=== PATIENT | female | born 1990 ===

== ENCOUNTER → 2021-07-14 | Outpatient (CLI) | payer OTHER ==
[~2021-07-14] MED LIST: ALB0.5V INH; CEFP500T4 PO; DOCU-165 PO; FLUT1DIS26 IH; MNTL10T PO; OSLT75C PO
== END ==
LOC: CARD 13:30
PROVIDERS: ATTEND Internal Medicine Cardiovascular Disease
DX: R00.2 Palpitations (principal)
CPT/HCPCS: 93306

== ENCOUNTER 2023-04-27 15:41 | Emergency (ER) | payer OTHER ==
[~2023-04-27] VITALS: Ht 162 cm; Wt 99.0 kg
[2023-04-27] MEDS ORDERED: PROMETHAZINE 25 MG (PHENERGAN) TAB PO ONE (16:15)
[2023-04-27] MEDS ORDERED: ONDANSETRON 4 MG (ZOFRAN) ORAL DISSOLVE TAB PO ONE (16:15)
[2023-04-27] MEDS ORDERED: ACETAMINOPHEN 500 MG TAB (TYLENOL) PO ONE (16:15)
--- NOTE | 2023-04-27 16:19 | ED General ---
General Chief Complaint: Fever-Adult/Adol Stated Complaint: FEVER - CONGESTION Nursing Triage Note: PT CO OF FEVER SINCE THIS AM, BODY ACHES, N/V/D. Source of Information: Patient Exam Limitations: No Limitations History of Present Illness Date Seen by Provider: Apr 27, 2023 Time Seen by Provider: 15:44 Initial Comments 33-year-old female with no pertinent past medical history coming in due to nausea and nonbloody nonbilious vomiting and nonbloody diarrhea. She is also having body aches. Started earlier this morning. Took ibuprofen earlier today. States she is feeling actually little bit better now. She was around someone that was positive for COVID the other day. Denies any significant cough, congestion, chest pain, shortness of breath, abdominal pain, focal weakness or numbness, rash, or any other concerns. LMP was 1 week ago. Allergies and Home Medications Allergies Coded Allergies: No Known Drug Allergies (Verified Allergy, Unknown, 09/06/08) Patient Home Medication List Home Medication List Reviewed: Yes Albuterol (Proventil 0.5% Rt) 2.5 Mg/0.5 Ml Nebu, 2.5 MG INH Q4H PRN Prescribed by: ZAINA DEL CASTILLO on 03/27/09 1736 Cefprozil (Cefzil) 500 Mg Tablet, 1 EACH PO BID Prescribed by: KYLE RAPP on 01/03/12 1701 Docusate Sodium (Dulcolax Stool Softener) 100 Mg Capsule, 100 MG PO, (Reported) Entered as Reported by: MARY SANTORO on 01/03/12 1429 Fluticasone/Salmeterol (Advair 250 Mcg/50 Mcg 60's) 1 Disk Inhp, 1 PUFF IH BID, (Reported) Entered as Reported by: MARY SANTORO on 01/03/12 1429 Montelukast Sodium (Singulair 10 Mg) 10 Mg Tablet, 1 TAB PO DAILY, (Reported) Entered as Reported by: MARY SANTORO on 01/03/12 1429 Oseltamivir Phosphate (Tamiflu) 75 Mg Cap, 75 MG PO BID Prescribed by: KYLE RAPP on 12/24/12 0723 Review of Systems Review of Systems Constitutional: chills, malaise EENTM: no symptoms reported Respiratory: no symptoms reported Cardiovascular: no symptoms reported Gastrointestinal: see HPI Genitourinary: no symptoms reported Musculoskeletal: no symptoms reported Skin: no symptoms reported Psychiatric/Neurological: No Symptoms Reported Past Zzbjvro-Umaqei-Hwodbu Hx Patient Social History Tobacco Use?: Yes Smoking Status: Current Someday Smoker Substance use?: No Alcohol Use?: No Pt feels they are or have been: No Immunizations Up To Date Tetanus Booster (TDap): Unknown First/Initial COVID19 Vaccinat: YES Second COVID19 Vaccination Brandon: YES Past Medical History Last Menstrual Period: Apr 20, [address] History: IUD Sexually Transmitted Disease: Yes (CLYAMDIA TREATED) Physical Exam Vital Signs Vital Signs - First Documented 04/27/23 15:45 Temp 37.7 Pulse 117 Resp 16 B/P (MAP) 132/59 (83) Pulse Ox 96 Capillary Refill : Less Than 3 Seconds Height, Weight, BMI Height: '" Weight: lbs. oz. kg; 37.00 BMI Method:Estimated General Appearance: No Apparent Distress, WD/WN Eyes: Bilateral Eye Normal Inspection HEENT: PERRL/EOMI, Normal ENT Inspection, Pharynx Normal Neck: Full Range of Motion, Normal Inspection, Non Tender, Supple Respiratory: Chest Non Tender, Lungs Clear, Normal Breath Sounds, No Accessory Muscle Use, No Respiratory Distress Cardiovascular: Regular Rate, Rhythm, No Edema, Normal Peripheral Pulses Gastrointestinal: Normal Bowel Sounds, Non Tender, Soft; No Distended, No Guarding Back: Normal Inspection, No CVA Tenderness Extremity: Normal Capillary Refill, Normal Inspection, Normal Range of Motion, Non Tender, No Calf Tenderness, No Pedal Edema Neurologic/Psychiatric: Alert, No Motor/Sensory Deficits, Normal Mood/Affect Skin: Normal Color, Warm/Dry Progress/Results/Core Measures Suspected Sepsis SIRS Temperature: Pulse: 117 Respiratory Rate: 16 Blood Pressure 132 /59 Mean: 83 Results/Orders Lab Results Laboratory Tests Test 04/27/23 16:17 Range/Units SARS-CoV-2 RNA (RT-PCR) Not Detected Not Detecte My Orders Orders - SILVINO SCHNEIDER MD Covid 19 Inhouse Test (04/27/23 16:01) Ondansetron Oral Dissolve Tab (Zofran (04/27/23 16:15) Promethazine Tablet (Phenergan Tablet) (04/27/23 16:15) Acetaminophen Tablet (Tylenol Tablet) (04/27/23 16:15) Medications Given in ED Current Medications Medications Dose Ordered Sig/Jarvis Route Start Time Stop Time Status Last Admin Dose Admin Acetaminophen 1,000 mg ONCE ONCE PO 04/27/23 16:15 04/27/23 16:16 DC 04/27/23 16:13 1,000 MG Ondansetron HCl 4 mg ONCE ONCE PO 04/27/23 16:15 04/27/23 16:16 DC 04/27/23 16:13 4 MG Promethazine HCl 25 mg ONCE ONCE PO 04/27/23 16:15 04/27/23 16:16 DC 04/27/23 16:13 25 MG Vital Signs/I&O 04/27/23 15:45 Temp 37.7 Pulse 117 Resp 16 B/P (MAP) 132/59 (83) Pulse Ox 96 Capillary Refill : Less Than 3 Seconds Blood Pressure Mean: 83 Progress Note : Progress Note 33-year-old female with above history coming in due to nausea, vomiting, body aches. ABCs were intact and vitals were stable on presentation. Physical exam with a soft and nontender abdomen. COVID test was obtained and was negative. She was given Zofran followed by Phenergan. I discussed with her if she is unable to keep p.o. fluids down then we would start an IV and give fluids. The patient was able to keep fluids down however and was feeling better. I believe she is stable for discharge with outpatient follow-up. She was sent home with strict return precautions. Departure Impression Primary Impression: Vomiting and diarrhea Disposition: HOME, SELF-CARE Condition: Stable Departure-Patient Inst. Decision time for Depature: 17:05 Referrals: MARIA DE JESUS ROY DO (PCP/Family) Primary Care Physician Patient Instructions: Viral Gastroenteritis, Adult (DC) Add. Discharge Instructions: This is likely a viral illness. It will improve hopefully in the next couple of days. Nausea medicines were sent to your pharmacy. Take frequent small sips of fluids. Take ibuprofen and/or Tylenol as needed for fever or body aches. Scripts Promethazine HCl (Promethazine Tablet) 25 Mg Tablet 25 MG PO Q8H PRN for NAUSEA/VOMITING for 5 Days, #15 TAB 0 Refills Prov: SILVINO SCHNEIDER MD 04/27/23 Ondansetron (Ondansetron Odt) 4 Mg Tab.rapdis 4 MG SL Q6H PRN for NAUSEA/VOMITING for 5 Days, #20 TAB Prov: SILVINO SCHNEIDER MD 04/27/23 Work/School Note: Work Release Form Date Seen in the Emergency Department: Apr 27, 2023 Return to Work: Apr 29, 2023 Restrictions: Return-No Fever (24hrs), Return-No Vomiting(24hrs) SILVINO SCHNEIDER MD Apr 27, 2023 16:19
[2023-04-27] MEDS ORDERED: PROM25TA14 PO (17:05)
[2023-04-27] MEDS ORDERED: ONDA4TAB11 SL (17:05)
[2023-04-27 17:11] VITALS: BP 134/72
== END 2023-04-27 17:11 | disposition home or self-care (01) ==
LOC: EDUNIT# 15:41 → ER 15:42
DX: R11.2 Nausea with vomiting, unspecified (principal); R19.7 Diarrhea, unspecified; M79.10 Myalgia, unspecified site; R50.9 Fever, unspecified; F17.200 Nicotine dependence, unspecified, uncomplicated; Z28.310 Unvaccinated for COVID-19; Z20.822 Contact with and (suspected) exposure to COVID-19
CPT/HCPCS: 87636; 99283

== ENCOUNTER 2023-04-29 08:34 | Emergency (ER) | payer OTHER ==
[~2023-04-29] VITALS: Ht 162 cm; Wt 100.0 kg
[~2023-04-29 08:34] MED LIST changes: +ONDA4TAB11 SL; +PROM25TA14 PO
[2023-04-29] MEDS ORDERED: DICYCLOMINE 10 MG/ML (BENTYL) 2 ML AMP IM STA (08:58)
[2023-04-29] MEDS ORDERED: LACTATED RINGERS 1,000 ML IV SCH (09:00)
[2023-04-29] MEDS ORDERED: ONDANSETRON 4 MG/2 ML (SDV) Z0FRAN IVP ONE (09:00)
--- NOTE | 2023-04-29 09:02 | ED Abdominal Pain ---
General Chief Complaint: Abdominal/GI Problems Stated Complaint: ABD PAIN | CRAMPING Nursing Triage Note: PT AMB TO RM 6 PT CO OF ABD PAIN AND CRAMPING. PT STATES HAS STATES HAS BEEN HAVING FEVERS PT STATES HAS HAD DIARRHEA APPROX Q 30 MIN BUT IS STARTING TO GET MORE FORMED. PT STATES STILL HAVING NAUSEA BUT NO VOMITING. PT WAS SEEN IN ED ON WEDNESDAY Source of Information: Patient Exam Limitations: No Limitations History of Present Illness Date Seen by Provider: Apr 29, 2023 Time Seen by Provider: 08:50 Initial Comments Patient is a 32-year-old female who presents to the emergency department with a chief complaint of diffuse abdominal cramping/upper abdominal cramping onset 48 hours ago. Patient states that she was seen in the emergency room and had a COVID test. 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 She had been exposed to somebody with COVID. She states she has been nauseous. She develops abdominal cramping shortly after eating. She has had diarrhea and she noted a little blood in her stool this morning. Multiple episodes of diarrhea a day. She has been alternating Tylenol with 800 mg of ibuprofen. Last dose of ibuprofen was at 2 AM this morning. She has not been eating consistently with ibuprofen. She periodically takes Prilosec. Occasionally smokes. No daily alcohol. No prior history of abdominal surgeries. Her last menstrual cycle was 1 week ago she believes. No recent fevers or chills. No congestion or productive cough. No dysuria, urgency or frequency. Timing/Duration: 2-3 Days Severity/Quality: Moderate, Burning, Cramping Location: Other (upper abdomen) Radiation: No Radiation Associated Symptoms: Diaphoresis, Nausea/Vomiting Allergies and Home Medications Allergies Coded Allergies: No Known Drug Allergies (Verified Allergy, Unknown, 09/06/08) Patient Home Medication List Home Medication List Reviewed: Yes Albuterol (Proventil 0.5% Rt) 2.5 Mg/0.5 Ml Nebu, 2.5 MG INH Q4H PRN Prescribed by: ZAINA DEL CASTILLO on 03/27/09 1736 Cefprozil (Cefzil) 500 Mg Tablet, 1 EACH PO BID Prescribed by: KYLE RAPP on 01/03/12 1701 Dicyclomine HCl (Dicyclomine HCl) 20 Mg Tablet, 20 MG PO AC PRN for abdominal cramping Prescribed by: EBENEZER LEDESMA on 04/29/23 1045 Docusate Sodium (Dulcolax Stool Softener) 100 Mg Capsule, 100 MG PO, (Reported) Entered as Reported by: MARY SANTORO on 01/03/12 1429 Fluticasone/Salmeterol (Advair 250 Mcg/50 Mcg 60's) 1 Disk Inhp, 1 PUFF IH BID, (Reported) Entered as Reported by: MARY SANTORO on 01/03/12 1429 Montelukast Sodium (Singulair 10 Mg) 10 Mg Tablet, 1 TAB PO DAILY, (Reported) Entered as Reported by: MARY SANTORO on 01/03/12 1429 Ondansetron (Ondansetron Odt) 4 Mg Tab.rapdis, 4 MG SL Q6H PRN for NAUSEA/VOMITING Prescribed by: SILVINO SCHNEIDER on 04/27/23 1705 Ondansetron (Ondansetron Odt) 4 Mg Tab.rapdis, 4 MG SL Q8H PRN for NAUSEA/VOMITING Prescribed by: EBENEZER LEDESMA on 04/29/23 1045 Oseltamivir Phosphate (Tamiflu) 75 Mg Cap, 75 MG PO BID Prescribed by: KYLE RAPP on 12/24/12 0723 Promethazine HCl (Promethazine Tablet) 25 Mg Tablet, 25 MG PO Q8H PRN for NAUSEA/VOMITING Prescribed by: SILVINO SCHNEIDER on 04/27/23 1705 Sucralfate (Carafate) 1 Gram Tablet, 1 GM PO Q6H Prescribed by: EBENEZER LEDESMA on 04/29/23 1118 Review of Systems Review of Systems Constitutional: see HPI EENTM: No Symptoms Reported Respiratory: No Symptoms Reported Cardiovascular: No Symptoms Reported Gastrointestinal: Abdominal Pain, Diarrhea, Nausea, Vomiting Genitourinary: No Symptoms Reported Musculoskeletal: no symptoms reported Skin: no symptoms reported All Other Systems Reviewed Negative Unless Noted: Yes Past Qluiphn-Wccqzi-Mghnpn Hx Patient Social History Tobacco Use?: Yes Tobacco type used: Cigarettes Smoking Status: Current Someday Smoker Substance use?: No Alcohol Use?: Yes Alcohol Frequency: Once in a while Pt feels they are or have been: No Immunizations Up To Date Tetanus Booster (TDap): Unknown First/Initial COVID19 Vaccinat: YES Second COVID19 Vaccination Brandon: YES Third COVID19 Vaccination Date: YES Past Medical History Surgery/Hospitalization HX: HX [employer] History: IUD Sexually Transmitted Disease: Yes (CLYAMDIA TREATED) Physical Exam Vital Signs Vital Signs - First Documented 04/29/23 04/29/23 08:40 11:19 Temp 36.1 Pulse 106 Resp 16 B/P (MAP) 147/79 (101) Pulse Ox 97 O2 Delivery Room Air Capillary Refill : Less Than 3 Seconds Height/Weight/BMI Height: '" Weight: lbs. oz. kg; 38.00 BMI Method:Estimated General Appearance: WD/WN, no apparent distress, obese HEENT: PERRL/EOMI Respiratory: lungs clear, normal breath sounds, no respiratory distress, no accessory muscle use Cardiovascular: regular rate, rhythm, tachycardia Gastrointestinal: soft, abnormal bowel sounds (hypoactive), tenderness (RUQ and epigastrum; mild tenderness LLQ) Extremities: normal range of motion, non-tender, normal inspection, no pedal edema Skin: normal color, damp Progress/Results/Core Measures Results/Orders Lab Results Laboratory Tests Test 04/29/23 08:50 04/29/23 10:38 04/29/23 10:50 Range/Units White Blood Count 15.7 H 4.3-11.0 10^3/uL Red Blood Count 4.84 3.80-5.11 10^6/uL Hemoglobin 13.6 11.5-16.0 g/dL Hematocrit 41 35-52 % Mean Corpuscular Volume 86 80-99 fL Mean Corpuscular Hemoglobin 28 25-34 pg Mean Corpuscular Hemoglobin Concent 33 32-36 g/dL Red Cell Distribution Width 14.4 10.0-14.5 % Platelet Count 290 130-400 10^3/uL Mean Platelet Volume 10.5 9.0-12.2 fL Immature Granulocyte % (Auto) 0 % Neutrophils (%) (Auto) 82 H 42-75 % Lymphocytes (%) (Auto) 11 L 12-44 % Monocytes (%) (Auto) 6 0-12 % Eosinophils (%) (Auto) 0 0-10 % Basophils (%) (Auto) 0 0-10 % Neutrophils # (Auto) 12.9 H 1.8-7.8 10^3/uL Lymphocytes # (Auto) 1.8 1.0-4.0 10^3/uL Monocytes # (Auto) 0.9 0.0-1.0 10^3/uL Eosinophils # (Auto) 0.0 0.0-0.3 10^3/uL Basophils # (Auto) 0.1 0.0-0.1 10^3/uL Immature Granulocyte # (Auto) 0.1 0.0-0.1 10^3/uL Neutrophils % (Manual) 75 % Lymphocytes % (Manual) 16 % Monocytes % (Manual) 3 % Eosinophils % (Manual) 1 % Band Neutrophils 5 % Blood Morphology Comment NORMAL Sodium Level 137 135-145 MMOL/L Potassium Level 3.4 L 3.6-5.0 MMOL/L Chloride Level 107 98-107 MMOL/L Carbon Dioxide Level 22 21-32 MMOL/L Anion Gap 8 5-14 MMOL/L Blood Urea Nitrogen 8 7-18 MG/DL Creatinine 0.72 0.60-1.30 MG/DL Estimat Glomerular Filtration Rate 114 BUN/Creatinine Ratio 11 Glucose Level 106 H 70-105 MG/DL Calcium Level 9.4 8.5-10.1 MG/DL Corrected Calcium 9.3 8.5-10.1 MG/DL Total Bilirubin 0.2 0.1-1.0 MG/DL Aspartate Amino Transf (AST/SGOT) 19 5-34 U/L Alanine Aminotransferase (ALT/SGPT) 19 0-55 U/L Alkaline Phosphatase 69 40-136 U/L Total Protein 7.5 6.4-8.2 GM/DL Albumin 4.1 3.2-4.5 GM/DL Lipase 10 8-78 U/L Serum Test, Qualitative NEGATIVE NEGATIVE Stool Occult Blood Immunoassay POSITIVE H NEGATIVE Lyme Disease Screen IgG & IgM Ab 0.22 0.00-0.89 Index Lyme Antibody Interpretation Negative Negative Ehrlichia chaffeensis IgG Antibody <1:16 <1:16 Ehrlichia chaffeensis IgM Antibody <1:10 <1:10 Spotted Fever Group IgG Antibody <1:16 <1:16 Spotted Fever Group IgM Antibody <1:10 <1:10 [place]mia Antibody 1:20 H Micro Results Microbiology 04/29/23 Cryptosporidium/Giardia - Final, Complete 04/29/23 C. difficile GDH Antigen & Toxins - Final, Complete 04/29/23 Stool Culture - Final, Complete Campylobacter jejuni See Comments My Orders Orders - BALTAZAR,EBENEZER M MD Ed Iv/Invasive Line Start (04/29/23 08:58) Cbc With Automated Diff (04/29/23 08:58) Comprehensive Metabolic Panel (04/29/23 08:58) Lipase (04/29/23 08:58) Hcg,Qualitative Serum (04/29/23 08:58) Lactated Ringers (Lr 1000 Ml Iv Solution (04/29/23 09:00) Ondansetron Injection (Zofran Injectio (04/29/23 09:00) Dicyclomine Injection (Bentyl Injection) (04/29/23 08:58) Manual Differential (04/29/23 08:50) Us Gallbladder [id number] (04/29/23 09:18) Tick Panel With Lyme Eia (04/29/23 10:17) Occult Blood Stool (04/29/23 10:17) Stool Culture (04/29/23 10:17) C Difficile Ag + Toxin A/B. (04/29/23 10:17) Parasite Scrn Stool Giard Cryp (04/29/23 10:17) Isolation Central Supply Req (04/29/23 10:17) Medications Given in ED Vital Signs/I&O 04/29/23 04/29/23 08:40 11:19 Temp 36.1 36.1 Pulse 106 94 Resp 16 16 B/P (MAP) 147/79 (101) 130/74 Pulse Ox 97 99 O2 Delivery Room Air Blood Pressure Mean: 101 Progress Progress Note : Time: 10:17 Progress Note Patient seen and evaluated by me. Evaluation today includes physical exam, CBC, Chem-12, serum test and gallbladder ultrasound. Pertinent physical exam findings well-developed well-nourished moderately obese female in no acute distress. Abdomen exam reveals hypoactive bowel sounds tenderness in the right upper quadrant, epigastrium and left lower quadrant. She has equivocal Nguyen's. Heart is regular, lungs are clear. No other concerning physical exam findings. Differential diagnosis based on history and physical exam acute cholecystitis, biliary dyskinesia, gastroenteritis, C. difficile colitis, tickborne illness. Patient's labs independently reviewed and interpreted by me. Her CBC shows a white blood cell count of 15.7, hemoglobin of 13.6 hematocrit of 41 platelet count of 290. Chem-12 remarkable only for slightly low potassium at 3.4 otherwise completely within normal limits. Serum test is negative. Gallbladder ultrasound does not show any findings per the radiologist of acute cholecystitis. Patient did state to me that she found a tick on her over Day weekend. She is not certain how long it was on her. She is concerned of possible tick related illness. She states she still is having waves of abdominal cramping. She was on Flagyl a couple of weeks ago for bacterial vaginosis. Otherwise no other antibiotic use recently. She was at the [place] when she found a tick on her. There is concern for possible infectious diarrhea. We are sending off a tick panel and stool panel. Will provide the patient with dicyclomine for the abdominal cramping. She states she is concerned that she may have a gastric ulcer. She did see a little blood in her stool this morning but also has a history of hemorrhoids. I encouraged her to take her acid reducing medications every day. This combined with the Bentyl and Zofran may help her symptoms. I advised that we would follow up with her regarding the stool panel and tick panel. We will go ahead and give her contact information for Dr. Cruz as she may require upper endoscopy at a later date. Encouraged follow-up with her primary care physician. She is comfortable with plan of care. All questions are sought and answered. Patient is stable for discharge. Diagnostic Imaging Diagonstic Imaging: Ultrasound Plain Films/CT/US/NM/MRI: other (GB) Comments NAME: [facility] REC#: [id number] PT STATUS: REG ER : 1990 PHYSICIAN: EBENEZER LEDESMA MD ADMIT DATE: 04/29/23/ER Draft Date of Exam:04/29/23 US GALLBLADDER [id number] EXAMINATION: US Abdomen limited. TECHNIQUE: Multiple real-time grayscale images were obtained over the right upper quadrant in various projections. HISTORY: epigastric and RUQ Abd pain; WBC 15k COMPARISON: None available. FINDINGS: Pancreas: The visualized portions of the pancreas are normal. Liver: The liver is normal in echogenicity and contour. No focal lesions are seen. The portal vein is patent with hepatopetal flow. Gallbladder and biliary tree: Gallbladder is normal without wall thickening, pericholecystic fluid, or sonographic Nguyen sign. There is no biliary ductal dilation. The common duct is obscured by bowel gas. Right kidney: The right kidney is normal without hydronephrosis. Aorta and IVC: The visualized aorta and inferior vena cava are normal. Fluid: No ascites is seen. IMPRESSION: 1. Unremarkable right upper quadrant ultrasound. Dictated on workstation # [id number] Dict: 04/29/23 1002 Trans: 04/29/23 1004 [facility] [id number] Interpreted by: SHU DOTSON DO Electronically signed by: Departure Impression Primary Impression: Abdominal pain Qualified Codes: R10.13 - Epigastric pain Additional Impression: Diarrhea Qualified Codes: R19.7 - Diarrhea, unspecified Disposition: 01 HOME, SELF-CARE Condition: Stable Departure-Patient Inst. Decision time for Depature: 10:43 Referrals: JOY CRUZ CASEY V DO (PCP/Family) Primary Care Physician Patient Instructions: Peptic Ulcers (DC) Add. 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 Follow a bland diet, low-fat and avoid spicy foods for now. You can take the dicyclomine tablet 30 minutes before eating. This may help with the abdominal cramping over the course of several days. Use the Zofran every 6-8 hours as needed for nausea. If you develop a fever, worsening pain or vomiting blood please return to the emergency room for reevaluation. I have provided you contact information for Dr. Cruz who is the general surgeon on-call. You may require a scope to evaluate for ulcers or a HIDA scan to further evaluate your gallbladder. Please call and follow-up with your primary care physician next week. Scripts Sucralfate (Carafate) 1 Gram Tablet 1 GM PO Q6H, #60 TAB take one hour before eating Prov: EBENEZER LEDESMA MD 04/29/23 Ondansetron (Ondansetron Odt) 4 Mg Tab.rapdis 4 MG SL Q8H PRN for NAUSEA/VOMITING, #12 TAB Prov: EBENEZER LEDESMA MD 04/29/23 Dicyclomine HCl (Dicyclomine HCl) 20 Mg Tablet 20 MG PO AC PRN for abdominal cramping, #60 TAB Prov: EBENEZER LEDESMA MD 04/29/23 Work/School Note: Work Release Form Date Seen in the Emergency Department: Apr 29, 2023 Return to Work: Apr 30, 2023 Copy Copies To 1: MARIA DE JESUS ROY KATHRYN M MD Apr 29, 2023 09:02
[2023-04-29 09:08] LABS: BASOPHILS # (AUTO) 0.1 10^3/uL (0.0-0.1); BASOPHILS % (AUTO) 0 % (0-10); EOSINOPHILS % (AUTO) 0 % (0-10); HEMATOCRIT 41 % (35-52); HEMOGLOBIN 13.6 g/dL (11.5-16.0); LYMPHOCYTES # (AUTO) 1.8 10^3/uL (1.0-4.0); LYMPHOCYTES % (AUTO) 11 % (12-44); MEAN CORPUSCULAR HEMOGLOBIN 28 pg (25-34); MEAN CORPUSCULAR HGB CONC 33 g/dL (32-36); MEAN CORPUSCULAR VOLUME 86 fL (80-99); MEAN PLATELET VOLUME 10.5 fL (9.0-12.2); MONOCYTES # (AUTO) 0.9 10^3/uL (0.0-1.0); MONOCYTES % (AUTO) 6 % (0-12); NEUTROPHILS # (AUTO) 12.9 10^3/uL (1.8-7.8); NEUTROPHILS % (AUTO) 82 % (42-75); PLATELET COUNT 290 10^3/uL (130-400); WHITE BLOOD COUNT 15.7 10^3/uL (4.3-11.0)
[2023-04-29 09:09] LABS: ALBUMIN 4.1 GM/DL (3.2-4.5); POTASSIUM 3.4 MMOL/L (3.6-5.0)
[2023-04-29 09:10] LABS: CALCIUM 9.4 MG/DL (8.5-10.1)
[2023-04-29 09:11] LABS: TOTAL PROTEIN 7.5 GM/DL (6.4-8.2)
[2023-04-29 09:13] LABS: BILIRUBIN,TOTAL 0.2 MG/DL (0.1-1.0)
[2023-04-29 09:15] LABS: CREATININE SERUM 0.72 MG/DL (0.60-1.30)
[2023-04-29 09:58] LABS: BAND NEUTROPHILS 5 %; EOSINOPHILS % (MANUAL) 1 %; LYMPHOCYTES % (MANUAL) 16 %; MONOCYTES % (MANUAL) 3 %; NEUTROPHILS % (MANUAL) 75 %
[2023-04-29 09:59] LABS: RBC MORPH NORMAL
--- NOTE | 2023-04-29 10:05 | Diagnostic Imaging Report ---
EXAMINATION: US Abdomen limited. TECHNIQUE: Multiple real-time grayscale images were obtained over the right upper quadrant in various projections. HISTORY: epigastric and RUQ Abd pain; WBC 15k COMPARISON: None available. FINDINGS: Pancreas: The visualized portions of the pancreas are normal. Liver: The liver is normal in echogenicity and contour. No focal lesions are seen. The portal vein is patent with hepatopetal flow. Gallbladder and biliary tree: Gallbladder is normal without wall thickening, pericholecystic fluid, or sonographic Nguyen sign. There is no biliary ductal dilation. The common duct is obscured by bowel gas. Right kidney: The right kidney is normal without hydronephrosis. Aorta and IVC: The visualized aorta and inferior vena cava are normal. Fluid: No ascites is seen. IMPRESSION: 1. Unremarkable right upper quadrant ultrasound. Dictated by: Dictated on workstation # [id number]
[2023-04-29] MEDS ORDERED: ONDA4TAB11 SL (10:45)
[2023-04-29] MEDS ORDERED: DICY20TA PO (10:45)
[2023-04-29] MEDS ORDERED: SUCR1TAB36 PO (11:18)
[2023-04-29 11:19] VITALS: BP 130/74
[2023-05-04] MEDS ORDERED: DOXY100T2 PO (11:53)
[2023-05-04] MEDS ORDERED: AZIT250T12 PO (11:58)
== END 2023-04-29 11:21 | disposition home or self-care (01) ==
LOC: EDUNIT# 08:34 → ER 08:36
DX: R10.13 Epigastric pain (principal); R19.7 Diarrhea, unspecified; R11.2 Nausea with vomiting, unspecified; R10.11 Right upper quadrant pain; R10.32 Left lower quadrant pain; E87.6 Hypokalemia; E66.9 Obesity, unspecified; F17.210 Nicotine dependence, cigarettes, uncomplicated; Z68.38 Body mass index [BMI] 38.0-38.9, adult
CPT/HCPCS: 36415; 76705; 80053; 82274; 83690; 84703; 85007; 85027; 86618; 86666; 86668; 86757; 87015; 87045; 87046; 87077; 87324; 87328; 87329; 87449; 87899